=== PATIENT | male | born 1955 | race Caucasian/White ===

== ENCOUNTER 2020-07-08 09:49 | Emergency (ER) | payer BC ==
[~2020-07-08] VITALS: Ht 180.3 cm; Wt 101.8 kg
[~2020-07-08 09:49] MED LIST: VALS40TA2 PO
[2020-07-08] MEDS ORDERED: IV NORMAL SALINE 1000ML BAG 1,000 ML IV ONE (11:00)
[2020-07-08] MEDS ORDERED: DEXAMETHASONE SOD PHOS 4 MG/ML VIAL IVP ONE (11:00)
[2020-07-08] MEDS ORDERED: MECLIZINE HCL 12.5 MG TABLET. PO ONE (11:00)
[2020-07-08] MEDS ORDERED: ONDANSETRON PF 4 MG/2 ML VIAL. IVP ONE (11:00)
--- NOTE | 2020-07-08 11:59 | PHYS DOC ---
Past Medical History Past Medical History: Arrhythmia, Hypertension, Kidney Stone Past Surgical History: Other Additional Past Surgical Histo: "minor knee surgery" Smoking Status: Former Smoker Alcohol Use: None Drug Use: None General Adult EDM: Chief Complaint: DIZZY/LIGHT HEADED HPI: HPI: 64-year-old male presents with report of dizziness with associated nausea and vomiting that started this morning upon waking. Patient denies any head trauma. Denies prior episode of similar experience. Patient reports he cannot even move his head without feeling very dizzy and nauseated. Patient denies any fever or chills. Denies known exposure to COVID- 19. Patient does report some cold sweats. Review of Systems: Review of Systems: Constitutional: Denies fever or chills; reports cold sweats Eyes: Denies change in visual acuity HENT: Denies nasal congestion or sore throat Respiratory: Denies cough or shortness of breath Cardiovascular: Denies chest pain or edema GI: Denies abdominal pain; reports nausea and vomiting : Denies dysuria or hematuria Musculoskeletal: Denies back pain or joint pain Integument: Denies rash; reports diaphoresis Neurologic: Denies headache, focal weakness or sensory changes; reports dizziness Complete review of systems negative unless otherwise specified. Current Medications: Current Medications Medications (Trade) Dose Ordered Sig/Jenny Start Time Stop Time Status Last Admin Dose Admin Dexamethasone Sodium Phosphate (Decadron) 10 mg 1X ONCE 07/08/20 11:00 07/08/20 11:01 DC Meclizine HCl (Antivert) 25 mg 1X ONCE 07/08/20 11:00 07/08/20 11:01 DC Ondansetron HCl (Zofran) 4 mg 1X ONCE 07/08/20 11:00 07/08/20 11:01 DC Sodium Chloride 1,000 ml @ 1,000 mls/hr 1X ONCE 07/08/20 11:00 07/08/20 11:59 Allergies: Allergies: Allergies Coded Allergies Type Severity Reaction Last Updated Verified codeine Allergy Mild hives 08/29/14 Yes Physical Exam: PE: Constitutional: Well developed, well nourished, ill but non-toxic appearance HENT: Normocephalic, atraumatic, bilateral external ears and TMs normal Eyes: PERRL, EOMI, conjunctiva normal, no discharge, horizontal nystagmus noted Neck: Normal range of motion, no tenderness, supple Lungs & Thorax: Equal chest rise and fall, no respiratory distress Abdomen: Soft, no tenderness Skin: Warm, diaphoresis noted, no erythema, no rash Back: No tenderness, no CVA tenderness Extremities: No tenderness, ROM intact, no edema Neurologic: Alert and oriented X 3, normal motor function, normal sensory function, no focal deficits noted Psychologic: Affect normal, judgement normal, mood normal Current Patient Data: Vital Signs: Vital Signs Date Time Temp Pulse Resp B/P (MAP) Pulse Ox O2 Delivery O2 Flow Rate FiO2 07/08/20 11:20 98.5 98.5 EKG: EKG: @1016 NSR at 75bpm, NO ST elevation, QRS 84ms, QT/QTc 390/438ms Radiology/Procedures: Radiology/Procedures: PROCEDURE: CHEST AP ONLY EXAMINATION: XR CHEST 1V CLINICAL HISTORY: Weakness EXAM DATE/TIME: 07/08/2020 11:36 AM COMPARISON: None FINDINGS: Lines, Tubes, and Devices: None. Cardiomediastinal Silhouette: Normal heart size. Aortic atherosclerotic calcification. Lungs and Pleura: No evidence of focal airspace consolidation or pleural effusion. Pulmonary vasculature unremarkable. Bones and Soft Tissues: Degenerative changes of the thoracic spine. IMPRESSION: No evidence of acute cardiopulmonary abnormality. Electronically signed by: Lexx Gomez DO (07/08/2020 12:26 PM) [facility] PROC[facility]URE: CT HEAD WO CONTRAST EXAMINATION: CT HEAD/BRAIN WO (CT HEAD WITHOUT IV CONTRAST) CLINICAL HISTORY: Dizziness TECHNIQUE: Serial axial images without IV contrast were obtained from the vertex to the foramen magnum. CT Dose Reduction Employed: One or more of the following individualized dose reduction techniques were utilized for this examination: 1. Automated exposure control 2. Adjustment of the mA and/or kV according to patient size 3. Use of iterative reconstruction technique. COMPARISON: None FINDINGS: Post-operative change: None. Acute change: No evidence of an acute infarct or other acute parenchymal process. Hemorrhage: No evidence of acute intracranial hemorrhage. Mass Lesion / Mass Effect: There is no evidence of an intracranial mass or extraaxial fluid collection. No significant mass effect. Chronic change: Minimal chronic white matter microvascular ischemic changes. Atherosclerotic calcification of bilateral carotid siphons. Parenchyma: There is mild generalized volume loss. The brain parenchyma is otherwise within normal limits for age. Ventricles: Ventricular enlargement concordant with the degree of parenchymal volume loss. Paranasal sinuses and skull base: Small mucous retention cysts bilateral maxillary sinuses. The skull base and imaged soft tissues are unremarkable. IMPRESSION: No evidence of acute intracranial abnormality. Electronically signed by: Lexx Gomez DO (07/08/2020 12:11 PM) [facility] Course & Med Decision Making: Course & Med Decision Making Pertinent Labs and Imaging studies reviewed. (See chart for details) Patient presents with HPI and physical exam consistent for vertigo. Symptomatic treatment provided. Lab obtained and posted to chart. EKG stable. CXR without acute process. CT head without acute process. Patient did display some signs of viral illness. COVID precautions utilized. COVID testing pending. Patient with interval improvement. Patient stable for discharge home with outpatient follow-up with PCP. Discussed findings and plan with patient, who acknowledges understanding and agreement. COVID-19 CRITERIA: The patient was evaluated during the global COVID-19 pandemic, and that diagnosis was suspected/considered upon their initial presentation. Their evaluation, treatment and testing was consistent with current guidelines for patients who present with complaints or symptoms that may be related to COVID-19. Dragon Disclaimer: Dragon Disclaimer: This electronic medical record was generated, in whole or in part, using a voice recognition dictation system. Departure Departure Impression: Primary Impression: Dizziness Additional Impression: Suspected 2019 novel coronavirus infection Disposition: 01 DC HOME SELF CARE/HOMELESS Condition: IMPROVED Referrals: MARY COLBERT (PCP) AJITH GODINEZ MD Patient Instructions: Dizziness, [id number], Vertigo, [id number] Additional Instructions: You have been tested for or diagnosed with COVID-19. It is an infection caused by a new type of coronavirus. COVID-19 will cause cold-like or mild flu symptoms in most. It can cause more severe symptoms like problems breathing in some. There is no treatment for COVID-19. The body will clear the infection over time. Self-care will help to ease discomfort. Steps to Take: Self-Care Rest as needed. Healthy habits may help you feel better. Steps include: Choose healthy foods including fruits and vegetables. Drink water throughout the day. Get plenty of sleep each night. If you smoke, try to quit. It may ease breathing. Avoid alcohol. Keep Others Healthy The virus can spread to others. Droplets are released every time you sneeze or cough. The droplets can get into the mouth, nose, or eyes of people near you and lead to infection. To lower the chances of spreading COVID-19 to others: Stay at home until your doctor has said it is safe to leave. If you tested pos itive this will mean staying isolated until both of the following are true: At least 7 days have passed since the start of illness. You are free of fever for at least 72 hours without the use of medicine. During this time: - Avoid public areas, events, or transportation. Do not return to work or school until your doctor has said it is safe to do so. - Call ahead if you need to go to a medical center. Let them know you may have COVID-19. It will help them guide you where to go. They may also ask you to wear a facemask when you come to the office. - If you call for emergency medical services, let them know you may have COVID- 19. While at home: - Try to avoid close contact with others. Stay about 6 feet away. - If possible, spend most of your time in a separate room from others. - Use a face mask if you will be in close contact with others such as sharing a room or vehicle. - Have someone wipe down common surfaces in the home. Use household chinese teacher every day on areas like doorknobs, counters, or sinks. - Cough or sneeze into a tissue. Throw the tissue away right after use. If a tissue is not available, cough or sneeze into your elbow. - Wash your hands often. Wash them after sneezing or coughing. Use soap and water and wash for at least 20 seconds. Alcohol based hand janitorial cleaner can be used if soap and water is not available. - Do not prepare food for others. Avoid sharing personal items like forks, spoons, or toothbrushes. - Avoid close contact with pets while you are sick. There is no evidence of the virus passing to pets. This is a safety step until more is known about this virus. Isolation can be frustrating. Social interaction can help. Keep in touch with friends and family through phone and tech options. You can still interact with others in your home, just keep a safe distance of about 6 feet. Follow-up: Your doctors office will check in with you to see if there are any changes in your health. You may be asked to keep track of symptoms to share with them. They will also let you know when you are clear to be in public again. Problems to Look Out For: Contact your doctor if your recovery is not going as you expect. Get emergency care if you have problems such as: - Trouble breathing - Nonstop chest pain or pressure - Changes in awareness, confusion, or problems waking - Lips or face have bluish color - Worsening of symptoms If you think you have an emergency, call for emergency medical services right away. As taken from [facility] [place] [facility] Ondansetron (ONDANSETRON ODT) 4 Mg Tab.rapdis 1 TAB PO PRN Q6-8HRS PRN for NAUSEA, #16 TAB Prov: PERLA BRIDGES DO 07/08/20 Meclizine Hcl (MECLIZINE HCL) 25 Mg Tablet 1 TAB PO PRN TID PRN for DIZZINESS, #20 TAB Prov: PERLA BRIDGES DO 07/08/20 COVID-19 Assessment: COVID-19 Patient Risks: Age 65 or older: Yes Sign of co-morbidity: No Exp to person + for COVID: No Exp to PUI: No Travel from affected area: No Lower respiratory symptoms: No Fever: No Other: Yes PPE Use: Full PPE with N95 mask or PAPR: Yes PERLA BRIDGES DO Jul 08, 2020 11:59
--- NOTE | 2020-07-08 12:14 | RAD ---
EXAMINATION: CT HEAD/BRAIN WO (CT HEAD WITHOUT IV CONTRAST) CLINICAL HISTORY: Dizziness TECHNIQUE: Serial axial images without IV contrast were obtained from the vertex to the foramen magnu m. CT Dose Reduction Employed: One or more of the following individualized dose reduction techniques wer e utilized for this examination: 1. Automated exposure control 2. Adjustment of the mA and/or kV ac cording to patient size 3. Use of iterative reconstruction technique. COMPARISON: None FINDINGS: Post-operative change: None. Acute change: No evidence of an acute infarct or other acute parenchymal process. Hemorrhage: No evidence of acute intracranial hemorrhage. Mass Lesion / Mass Effect: There is no evidence of an intracranial mass or extraaxial fluid collectio n. No significant mass effect. Chronic change: Minimal chronic white matter microvascular ischemic changes. Atherosclerotic calcific ation of bilateral carotid siphons. Parenchyma: There is mild generalized volume loss. The brain parenchyma is otherwise within normal li mits for age. Ventricles: Ventricular enlargement concordant with the degree of parenchymal volume loss. Paranasal sinuses and skull base: Small mucous retention cysts bilateral maxillary sinuses. The skull base and imaged soft tissues are unremarkable. IMPRESSION: No evidence of acute intracranial abnormality. Electronically signed by: Lexx Gomez DO (07/08/2020 12:11 PM) [facility]
--- NOTE | 2020-07-08 12:28 | RAD ---
EXAMINATION: XR CHEST 1V CLINICAL HISTORY: Weakness EXAM DATE/TIME: 07/08/2020 11:36 AM COMPARISON: None FINDINGS: Lines, Tubes, and Devices: None. Cardiomediastinal Silhouette: Normal heart size. Aortic atherosclerotic calcification. Lungs and Pleura: No evidence of focal airspace consolidation or pleural effusion. Pulmonary vasculat ure unremarkable. Bones and Soft Tissues: Degenerative changes of the thoracic spine. IMPRESSION: No evidence of acute cardiopulmonary abnormality. Electronically signed by: Lexx Gomez DO (07/08/2020 12:26 PM) [facility]
[2020-07-08 12:45] LABS: BASO % 0 % (0-3); EOS % 0 % (0-3); HEMATOCRIT 42.8 % (39.0-53.0); HEMOGLOBIN 15.3 g/dL (13.0-17.5); LYMPH # 1.2 x10^3/uL (1.0-4.8); LYMPH % 12 % (24-48); MEAN CORPUSCULAR HEMOGLOBIN 32 pg (25-35); MEAN CORPUSCULAR HGB CONC 36 g/dL (31-37); MEAN CORPUSCULAR VOLUME 88 fL (79-100); MONO # 0.4 x10^3/uL (0.0-1.1); MONO % 4 % (0-9); NEUT # 8.3 x10^3/uL (1.8-7.7); NEUT % 84 % (31-73); PLATELET COUNT 193 x10^3/uL (140-400); RED BLOOD COUNT 4.86 x10^6/uL (4.30-5.70); RED CELL DISTRIBUTION WIDTH 12.5 % (11.5-14.5); WHITE BLOOD COUNT 9.9 x10^3/uL (4.0-11.0)
[2020-07-08 12:56] LABS: CALCIUM 9.4 mg/dL (8.5-10.1); CREATININE 0.9 mg/dL (0.7-1.3); GFR 84.7; POTASSIUM 3.9 mmol/L (3.5-5.1)
[2020-07-08 13:02] LABS: ALBUMIN 4.1 g/dL (3.4-5.0); ALBUMIN/GLOBULIN RATIO 1.2 (1.0-1.7); MAGNESIUM 1.8 mg/dL (1.8-2.4); TOTAL BILIRUBIN 0.4 mg/dL (0.2-1.0); TOTAL PROTEIN 7.5 g/dL (6.4-8.2)
[2020-07-08 14:59] VITALS: BP 157/78
[2020-07-08] MEDS ORDERED: MECL-75 PO (15:06)
[2020-07-08] MEDS ORDERED: ONDA4TAB12 PO (15:06)
--- NOTE | 2020-07-08 17:10 | EKG ---
[facility] [address] [place] [address] Test Date: 2020-07-08 Test Time: 10:16:17 Pat Name: PERLA MONCADARAUDEL Department: Room: Gender: M Stock Broker: : 1955 Requested By: PERLA BRIDGES Order Number: [id number] Reading MD: Measurements Intervals Dorena Rate: 75 P: 43 WA: 182 QRS: -31 QRSD: 84 T: 56 QT: 390 QTc: 438 Interpretive Statements SINUS RHYTHM ABNORMAL LEFT AXIS DEVIATION LEFT ANTERIOR FASCICULAR BLOCK QRS(T) CONTOUR ABNORMALITY CONSISTENT WITH ANTEROSEPTAL INFARCT PROBABLY OLD ABNORMAL ECG RI6.01 No previous ECG available for comparison
--- NOTE | 2020-07-10 09:54 | NUR ---
IP: Informed pt of negative COVID results. Pt verbalized understanding.
== END 2020-07-08 15:35 | disposition home or self-care (01) ==
LOC: ER 09:49
DX: R42 Dizziness and giddiness (principal); R11.2 Nausea with vomiting, unspecified; Z20.818 Contact with and (suspected) exposure to other bacterial communicable diseases; I10 Essential (primary) hypertension; Z87.442 Personal history of urinary calculi; Z87.891 Personal history of nicotine dependence; Z88.5 Allergy status to narcotic agent
CPT/HCPCS: 36415; 70450; 71045; 80053; 82553; 83735; 84484; 85025; 93005; 96361; 96374; 96375; 99285; C9803; J1100; J2405; J7030; J8597; U0003